=== PATIENT | female | born 1960 | race Caucasian/White ===

== ENCOUNTER 2021-06-24 09:36 | Day surgery (SDC) | payer OTHER ==
[~2021-06-24] VITALS: Ht 172.7 cm; Wt 105.8 kg
[2021-06-24] MEDS ORDERED: DIABETA 5MG5 MG/TAB PO (10:45)
[2021-06-24] MEDS ORDERED: GLUCOPHAGE500 MG/TAB PO (10:45)
[2021-06-24] MEDS ORDERED: PROTONIX 40MG T40 MG PO (10:46)
[2021-06-24] MEDS ORDERED: TRICOR145 MG PO (10:46)
[2021-06-24] MEDS ORDERED: COZAAR 25MG25 MG/TAB PO (10:46)
[2021-06-24] MEDS ORDERED: FERROUS GL325 MG/TAB (10:47)
[2021-06-24] MEDS ORDERED: LANTUS SOLOS100 U/ML SQ (10:47)
[2021-06-24] MEDS ORDERED: ONE-A-DAY ESSE1 EACH PO (10:48)
[2021-06-24 10:56] VITALS: BP 140/74; PULSE 102; TEMP 97
[2021-06-24 11:55] VITALS: BP 114/62; PULSE 91; TEMP 98.3
--- NOTE | 2021-06-24 11:55 | NUR ---
Pt returned to [facility] via cart. Alert and oriented. Postop vitals started. Diet pepsi and muffin provided. Will continue to monitor.
[2021-06-24 12:10] VITALS: BP 95/64; PULSE 95
--- NOTE | 2021-06-24 12:10 | NUR ---
Pt sitting up in chair. Alert and oriented. Tolerating food and drink well.
--- NOTE | 2021-06-24 12:15 | NUR ---
Pt sitting up in chair. Alert and oriented. Vitals stable. D/C IV with no complications. Patient instructed to dress while waiting for
[2021-06-24 12:25] VITALS: BP 133/65; PULSE 90
--- NOTE | 2021-06-24 12:50 | NUR ---
Dr. polanco to speak with patient. Reviewed discharge instructions. Verbalized understanding. Pt up to bathroom.
--- NOTE | 2021-06-24 13:08 | NUR ---
Transported patient via wheelchair to personal vehicle accompanied by friend.
[2021-08-21] MEDS ORDERED: CANASA 1000MG1000 MG RC (10:42)
[2021-08-21] MEDS ORDERED: BENTYL 10MG10 MG/CAP PO (10:43)
== END 2021-06-24 13:08 | disposition home or self-care (01) ==
LOC: SDCO 09:36
DX: K52.9 Noninfective gastroenteritis and colitis, unspecified (principal); K62.89 Other specified diseases of anus and rectum; K50.111 Crohn's disease of large intestine with rectal bleeding; R19.4 Change in bowel habit; K64.4 Residual hemorrhoidal skin tags; I10 Essential (primary) hypertension; E66.9 Obesity, unspecified; E11.9 Type 2 diabetes mellitus without complications; K21.9 Gastro-esophageal reflux disease without esophagitis; E78.5 Hyperlipidemia, unspecified; D50.9 Iron deficiency anemia, unspecified; Z90.49 Acquired absence of other specified parts of digestive tract; Z98.0 Intestinal bypass and anastomosis status; Z79.84 Long term (current) use of oral hypoglycemic drugs; Z79.899 Other long term (current) drug therapy; Z90.89 Acquired absence of other organs
CPT/HCPCS: J2704; J7030

== ENCOUNTER → 2021-08-21 | Day surgery (SDC) | payer OTHER ==
[~2021-08-21] VITALS: Ht 172.7 cm; Wt 105.5 kg
[~2021-08-21] MED LIST: BENTYL 10MG10 MG/CAP PO; CANASA 1000MG1000 MG RC; COZAAR 25MG25 MG/TAB PO; DIABETA 5MG5 MG/TAB PO; FERROUS GL325 MG/TAB; GLUCOPHAGE500 MG/TAB PO; LANTUS SOLOS100 U/ML SQ; ONE-A-DAY ESSE1 EACH PO; PROTONIX 40MG T40 MG PO; TRICOR145 MG PO
[2021-08-21 11:14] VITALS: BP 140/73; PULSE 95; TEMP 98.1
[2021-08-21 12:05] VITALS: BP 11/64; PULSE 84; TEMP 98.5
[2021-08-21 12:20] VITALS: BP 105/61; PULSE 84
[2021-08-21 12:35] VITALS: BP 113/60; PULSE 79
--- NOTE | 2021-08-21 12:40 | NUR ---
1205 - Pt returns from endo procedure via cart to [facility]. Pt ambulates from cart to recliner with RN assist. Monitors on and alarms set. Call light within reach. Pt alert and oriented. Pt requests soda and muffin. Pt denies any pain or nausea. 1220 - Pt taking food and drink well. No complications noted. 1235 - Discharge instructions given to pt. All questions answered to pt satisfaction. Handed to pt are a thank you card and discharge information. 1240- Pt transferred out of the hospital via wheelchair, to private vehicle driven by friend Maryana.
== END ==
LOC: SDCO 09:42
DX: K50.80 Crohn's disease of both small and large intestine without complications (principal); K44.9 Diaphragmatic hernia without obstruction or gangrene; K29.50 Unspecified chronic gastritis without bleeding; K31.7 Polyp of stomach and duodenum; I10 Essential (primary) hypertension; E11.9 Type 2 diabetes mellitus without complications; K21.9 Gastro-esophageal reflux disease without esophagitis; E78.5 Hyperlipidemia, unspecified; D50.9 Iron deficiency anemia, unspecified; Z79.899 Other long term (current) drug therapy; Z90.89 Acquired absence of other organs
CPT/HCPCS: J2704; J7030

== ENCOUNTER 2022-02-26 09:14 | Day surgery (SDC) | payer OTHER ==
[~2022-02-26] VITALS: Ht 172.7 cm; Wt 106.3 kg
[2022-02-26 12:25] VITALS: BP 148/90; PULSE 97; TEMP 98.3
--- NOTE | 2022-02-26 12:25 | NUR ---
Pt arrived from procedure drowsy but oriented. Vitals obtained. Verbal report obtained. Pt assisted with ambulating from cart to chair by NAKIA Morris. Ice water and muffin provided. Call virk is within reach on side table.
[2022-02-26 12:40] VITALS: BP 131/91; PULSE 95
--- NOTE | 2022-02-26 12:40 | NUR ---
Vitals obtained. pt has finished her muffin and denies nausea. Call virk remains within reach.
[2022-02-26 12:55] VITALS: BP 133/68; PULSE 96
--- NOTE | 2022-02-26 12:55 | NUR ---
Vitals obtained. IV discontinued. Catheter tip intact. Pressure bandage applied. No redness or swelling noted. DC instructions and educational material reviewed with pt, who verbalized understanding and signed the related paperwork. Pt denied questions or concerns. Pt ambulated to bathroom without assistance and denied needing help changing into personal belongings. Call virk is within reach if needed.
--- NOTE | 2022-02-26 13:10 | NUR ---
Pt dismissed from endo via wheelchair to the pt entrence by NAKIA Archer and was transferred into the care of her friend, who is present to drive. Pt has DC packet and personal belongings.
[2022-02-26 16:05] VITALS: BP 146/79; PULSE 103; TEMP 97.8
== END 2022-02-26 13:10 | disposition home or self-care (01) ==
LOC: SDCO 09:14
DX: K91.89 Other postprocedural complications and disorders of digestive system (principal); K63.89 Other specified diseases of intestine; K52.9 Noninfective gastroenteritis and colitis, unspecified; K51.30 Ulcerative (chronic) rectosigmoiditis without complications; K62.89 Other specified diseases of anus and rectum; R19.4 Change in bowel habit; K64.4 Residual hemorrhoidal skin tags; R15.2 Fecal urgency; Z98.0 Intestinal bypass and anastomosis status; Z79.899 Other long term (current) drug therapy
CPT/HCPCS: J2704; J7030